=== PATIENT | female | born 2000 | race Caucasian/White ===

== ENCOUNTER → 2021-10-27 08:54 | Outpatient (CLI) | payer OTHER, SELFPAY ==
[2021-10-27 09:28] LABS: COVID19 -Nasal RAPID Negative (Negative)
== END ==
PROVIDERS: Visit Provider Student in an Organized Health Care Education/Training Program
DX: Z20.822 Contact with and (suspected) exposure to COVID-19 (principal)
CPT/HCPCS: 87635